=== PATIENT | male | born 1990 ===

== ENCOUNTER 2018-07-01 10:38 | Emergency (ER) | payer SELFPAY | END 2018-07-01 10:57 | disposition left against medical advice (07) | LOC: C.ER 10:38 | DX: Z02.89 Encounter for other administrative examinations (principal); Z00.00 Encounter for general adult medical examination without abnormal findings ==

== ENCOUNTER 2018-07-01 11:00 | Emergency (ER) | payer SELFPAY ==
--- NOTE | 2018-07-01 11:19 | C.PDOC ---
History Of Present Illness REQUESTING HEROIN DETOX. 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 OCC USE COCAINE, LAST USE YEST. DENIES OTHER DRUG USE. DENIES SI/SA EXAM NAD USING CELLPHONE WO DIFF PSYCH CALM COOPERATIVE NO WITHDRAWAL, ACUTE PSYCHOSIS, SI/SA REMAINDER NEG Time Seen by Provider: 07/01/18 11:10 Chief Complaint (Nursing): Substance Abuse History Per: Patient History/Exam Limitations: no limitations Past Medical History Reviewed: Historical Data, Nursing Documentation, Vital Signs - Medical History PMH: Anxiety Denies: Depression Surgical History: No Surg Hx - [facility] Procedures APPLICATION OF SPLINT (03/12/06) INJECT/INFUSE ELECTROLYT (03/21/14) INJECT/INFUSE NEC (08/03/14) MAGNETIC RESONANCE IMAGING OF BRAIN AND BRAIN STEM (12/11/06) Family History: States: No Known Family Hx - Social History Hx Tobacco Use: Yes Hx Alcohol Use: No Hx Substance Use: Yes (yesterday) - Immunization History Hx Tetanus Toxoid Vaccination: Yes Review Of Systems Except As Marked, All Systems Reviewed And Found Negative. Constitutional: Negative for: Fever, Chills Psych: Negative for: Suicidal ideation Physical Exam - Physical Exam Appears: No Acute Distress, Other (using cellphone without difficulty) Skin: Normal Color, Warm, Dry Head: Atraumatic, Normacephalic Eye(s): bilateral: Normal Inspection Oral Mucosa: Moist Chest: Symmetrical Cardiovascular: Rhythm Regular Respiratory: Normal Breath Sounds, No Rales, No Rhonchi, No Wheezing Gastrointestinal/Abdominal: Normal Exam, Soft, No Tenderness, No Guarding, No Rebound Neurological/Psych: Oriented x3, Normal Speech, Other (psych: calm,cooperative, no withdrawal, no acute psychosis, no SI/SA) ED Course And Treatment - Laboratory Results Result Diagrams: 07/01/18 13:04 07/01/18 13:04 Progress - Re-Evaluation Re-evaluation Note: 07/01/18 11:19 D/W CRISIS WILL EVAL IN ER 07/01/18 14:14 MED CLEAR FOR DETOX CRISIS NOTIFIED 07/01/18 15:57 PENDING CRISIS PT EVAL, DISPO 07/01/18 16:44 PT ACCEPTED FOR DETOX BUT NO LONGER WANTS ADMISSION - Data Reviewed Data Reviewed: Lab, Old records Medical Decision Making Medical Decision Making: Plan: --CRISIS Eval. Disposition Counseled Patient/Family Regarding: Studies Performed, Diagnosis - Disposition Referrals: OUTPATIENT, DETOX [Other] Disposition: HOME/ ROUTINE Disposition Time: 16:51 Condition: IMPROVED Additional Instructions: YOU HAVE BEEN OFFERED DETOX ADMISSION BUT HAVE REFUSED. FOLLOW UP OUTPATIENT DETOX Instructions: Polysubstance Abuse (DC) Forms: [facility] (Spanish) - Clinical Impression Clinical Impression: Polysubstance abuse - Scribe Statement The provider has reviewed the documentation as recorded by the Mendezibe Diego Ring Provider Attestation: All medical record entries made by the Mendezibe were at my direction and personally dictated by me. I have reviewed the chart and agree that the record accurately reflects my personal performance of the history, physical exam, medical decision making, and the department course for this patient. I have also personally directed, reviewed, and agree with the discharge instructions and di sposition.
[2018-07-01 11:25] VITALS: RESP 18
[2018-07-01 13:35] LABS: BASO % 0.6 % (0.0-2.0); EOS # 0.2 K/uL (0.0-0.7); EOS % 2.4 % (0.0-4.0); HEMOGLOBIN 12.8 g/dL (12.0-18.0); LYMPH # 1.7 K/uL (1.0-4.3); LYMPH % 25.2 % (20.0-40.0); MEAN CORPUSCULAR HEMOGLOBIN 29.8 pg (27.0-31.0); MEAN CORPUSCULAR HGB CONC 34.3 g/dL (33.0-37.0); MONO # 0.4 K/uL (0.0-0.8); MONO % 5.8 % (0.0-10.0); NEUT # 4.3 K/uL (1.8-7.0); NRBC % 0.2 % (0.0-2.0); RBC 4.29 Mil/uL (4.40-5.90); RED CELL DISTRIBUTION WIDTH 12.8 % (11.5-14.5); WHITE BLOOD COUNT 6.6 K/uL (4.8-10.8)
[2018-07-01 13:49] LABS: URINE CLARITY Clear (Clear); URINE COLOR YELLOW (YELLOW); URINE GLUCOSE (UA) NEGATIVE (Normal)
[2018-07-01 13:50] LABS: BARBITURATES, UR NEGATIVE (NEGATIVE); BENZODIAZEPINES, UR NEGATIVE (NEGATIVE); PHENCYCLIDINE, UR NEGATIVE (NEGATIVE); URINE BILIRUBIN NEGATIVE (NEGATIVE); URINE BLOOD NEGATIVE (NEGATIVE); URINE LEUKOCYTE ESTERASE NEGATIVE Leu/uL (Negative); URINE PROTEIN NEGATIVE (NEGATIVE); URINE UROBILINOGEN 0.2 mg/dL (0.2-1.0)
[2018-07-01 13:53] LABS: ALB/GLOB RATIO 1.6 (1.0-2.1); ALBUMIN 4.1 g/dL (3.5-5.0); ALT/SGPT 16 U/L (21-72); AST/SGOT 22 U/L (17-59); BLOOD UREA NITROGEN 19 mg/dL (9-20); CALCIUM 9.1 mg/dl (8.6-10.4); GFR NON-AFRICAN AMERICAN > 60
[2018-07-01 14:08] LABS: OPIATES, UR POSITIVE (NEGATIVE)
[2018-07-01 15:30] VITALS: BP 103/49; PULSE 90; TEMP 98.2; O2SAT 97
== END 2018-07-01 17:32 | disposition home or self-care (01) ==
LOC: C.ER 11:00
DX: F19.10 Other psychoactive substance abuse, uncomplicated (principal); Z72.0 Tobacco use
CPT/HCPCS: 80053; 81001; 83735; 84100; 85025; 99284; G0480

== ENCOUNTER 2018-07-03 13:53 | Emergency (ER) | payer MEDICAID, OTHER ==
[2018-07-03 14:02] VITALS: BMI 25.1
[2018-07-03 14:05] VITALS: TEMP 97.9; O2SAT 98
--- NOTE | 2018-07-03 14:32 | C.PDOC ---
History Of Present Illness 27 y/o male presents to ED today requesting detox from heroin. Patient was here 2 days ago and was accepted for detox at that time, but hes on a methadone program on a very high dose of methadone [address] Hutchinson states patient had to be willing to accept lower doses of methadone and will give 40 mg to 50 a day, but patient got agitated and left. He comes back today and wants to try getting off methadone this time. States he uses 40 bags a day. Denies any history of anxiety or depression. Time Seen by Provider: 07/03/18 14:11 Chief Complaint (Nursing): Substance Abuse History Per: Patient History/Exam Limitations: no limitations Onset/Duration Of Symptoms: Days Current Symptoms Are (Timing): Still Present Past Medical History Reviewed: Historical Data, Nursing Documentation, Vital Signs Vital Signs: Last Vital Signs Temp 97.9 F 07/03/18 14:02 Pulse 83 07/03/18 14:02 Resp 20 07/03/18 14:02 BP 107/64 07/03/18 14:02 Pulse Ox 98 07/03/18 14:02 - Medical History PMH: Anxiety Denies: Depression - [facility] Procedures APPLICATION OF SPLINT (03/12/06) INJECT/INFUSE ELECTROLYT (03/21/14) INJECT/INFUSE NEC (08/03/14) MAGNETIC RESONANCE IMAGING OF BRAIN AND BRAIN STEM (12/11/06) Family History: States: No Known Family Hx - Social History Hx Tobacco Use: Yes Hx Alcohol Use: No Hx Substance Use: Yes - Immunization History Hx Tetanus Toxoid Vaccination: Yes Hx Influenza Vaccination: No Hx Pneumococcal Vaccination: No Review Of Systems Constitutional: Negative for: Fever, Chills Cardiovascular: Negative for: Chest Pain Respiratory: Negative for: Shortness of Breath Gastrointestinal: Negative for: Nausea, Vomiting Psych: Positive for: Other (Heroin abuse). Negative for: Anxiety, Depression, Psychosis, Suicidal ideation Physical Exam - Physical Exam Appears: Non-toxic, No Acute Distress Skin: Warm, Dry Head: Atraumatic, Normacephalic Eye(s): bilateral: Normal Inspection Oral Mucosa: Moist Neck: Supple Cardiovascular: Rhythm Regular, No Murmur Respiratory: Normal Breath Sounds, No Rales, No Rhonchi, No Wheezing Gastrointestinal/Abdominal: Soft, No Tenderness Extremity: Bilateral: Atraumatic, Normal ROM Neurological/Psych: Oriented x3, Normal Speech ED Course And Treatment - Laboratory Results Result Diagrams: 07/03/18 14:51 07/03/18 14:51 Lab Interpretation: No Acute Changes O2 Sat by Pulse Oximetry: 98 (RA) Pulse Ox Interpretation: Normal Progress Note: Patient is medically cleared for detox admission. Medical Decision Making Medical Decision Making: Plan: --Labs --UA --Nicotine patch Disposition - Disposition Disposition: ELOPEMENT - ER ONLY Disposition Time: 16:30 Condition: UNKNOWN - Clinical Impression Clinical Impression: Drug dependence - Scribe Statement The provider has reviewed the documentation as recorded by the Mendezibcookie Marie Provider Attestation: All medical record entries made by the Mendezibcookie were at my direction and pe rsonally dictated by me. I have reviewed the chart and agree that the record accurately reflects my personal performance of the history, physical exam, medical decision making, and the department course for this patient. I have also personally directed, reviewed, and agree with the discharge instructions and disposition.
[2018-07-03 14:55] LABS: BASO % 0.3 % (0.0-2.0); EOS # 0.1 K/uL (0.0-0.7); EOS % 1.7 % (0.0-4.0); HEMOGLOBIN 13.3 g/dL (12.0-18.0); LYMPH # 1.3 K/uL (1.0-4.3); MEAN CELL VOLUME 86.6 fL (80.0-94.0); MEAN CORPUSCULAR HEMOGLOBIN 29.5 pg (27.0-31.0); MEAN PLATELET VOLUME 7.8 fL (7.2-11.7); MONO # 0.3 K/uL (0.0-0.8); MONO % 6.2 % (0.0-10.0); NEUT # 3.7 K/uL (1.8-7.0); NEUT % 67.8 % (50.0-75.0); RBC 4.52 Mil/uL (4.40-5.90); RED CELL DISTRIBUTION WIDTH 12.6 % (11.5-14.5); WHITE BLOOD COUNT 5.5 K/uL (4.8-10.8)
[2018-07-03 14:59] LABS: SQUAMOUS EPITHIAL < 1 /hpf (0-5); URINE BILIRUBIN NEGATIVE (NEGATIVE); URINE BLOOD NEGATIVE (NEGATIVE); URINE CLARITY Clear (Clear); URINE COLOR Yellow (YELLOW); URINE GLUCOSE (UA) NORMAL (Normal); URINE LEUKOCYTE ESTERASE NEG Leu/uL (Negative); URINE PROTEIN NEGATIVE (NEGATIVE); URINE UROBILINOGEN NORMAL mg/dL (0.2-1.0)
[2018-07-03 15:09] LABS: ALB/GLOB RATIO 1.6 (1.0-2.1); ALBUMIN 4.4 g/dL (3.5-5.0); ALT/SGPT 11 U/L (21-72); AST/SGOT 25 U/L (17-59); BLOOD UREA NITROGEN 17 mg/dL (9-20); CALCIUM 9.6 mg/dl (8.6-10.4); GFR NON-AFRICAN AMERICAN > 60
[2018-07-03 15:21] LABS: BARBITURATES, UR NEGATIVE (NEGATIVE); BENZODIAZEPINES, UR NEGATIVE (NEGATIVE); PHENCYCLIDINE, UR NEGATIVE (NEGATIVE)
[2018-07-03 15:43] LABS: OPIATES, UR POSITIVE (NEGATIVE)
[2018-07-03 17:41] LABS: BARBITURATES, UR NEGATIVE (NEGATIVE); BENZODIAZEPINES, UR NEGATIVE (NEGATIVE); PHENCYCLIDINE, UR NEGATIVE (NEGATIVE)
[2018-07-03 17:43] VITALS: BP 128/85; PULSE 64; RESP 18
[2018-07-03 18:02] LABS: OPIATES, UR POSITIVE (NEGATIVE)
== END 2018-07-03 17:53 | disposition home or self-care (01) ==
LOC: C.ER 13:53
DX: F19.20 Other psychoactive substance dependence, uncomplicated (principal); Z72.0 Tobacco use
CPT/HCPCS: 36415; 80053; 81001; 83735; 84100; 85025; 99284; G0480